=== PATIENT | male | born 2000 | race Caucasian/White ===

== ENCOUNTER 2022-06-18 13:52 | Emergency (ER) | payer OTHER ==
[2022-06-18 14:03] VITALS: BP 139/90; PULSE 88; RESP 18; TEMP 98.4; BMI 21.7
[2022-06-18] MEDS ORDERED: ACETAMINOPHEN 500 MG TABLET (FP) PO ONE (14:21)
[2022-06-18] MEDS ORDERED: ACETAMINOPHEN 500 MG TABLET (FP) ONE (14:23)
== END 2022-06-18 15:32 | disposition home or self-care (01) ==
LOC: JERFT 13:52
PROC: 2W3JX1Z Immobilization of Right Finger using Splint (ICD-10-PCS; principal; 2022-06-18)
DX: S62.304A Unspecified fracture of fourth metacarpal bone, right hand, initial encounter for closed fracture (principal); Y09 Assault by unspecified means
CPT/HCPCS: 73130-TC-RT-FY; 73140-TC-RT-FY; 99284-25